=== PATIENT | male | born 1995 | race Hispanic/Latino ===

== ENCOUNTER 2018-03-21 17:52 | Emergency (ER) | payer SELFPAY ==
[~2018-03-21] VITALS: Ht 154.9 cm; Wt 66.5 kg
[2018-03-21] MEDS ORDERED: KEFLEX500 MG PO (20:08)
[2018-03-21] MEDS ORDERED: PERCOCET 5/31 TABLET PO (20:08)
[2018-03-21 21:05] VITALS: BP 136/80
== END 2018-03-21 21:06 | disposition home or self-care (01) ==
LOC: EXP 17:52 → EME 17:52 → EXP 21:06
PROC: 3E0234Z Introduction of Serum, Toxoid and Vaccine into Muscle, Percutaneous Approach (ICD-10-PCS; principal; 2018-03-21)
DX: S68.623A Partial traumatic transphalangeal amputation of left middle finger, initial encounter (principal); W23.0XXA Caught, crushed, jammed, or pinched between moving objects, initial encounter; Z23 Encounter for immunization
CPT/HCPCS: 73140; 99281; 99284; S0020